=== PATIENT | female | born 2000 | race Hispanic/Latino ===

== ENCOUNTER 2019-12-05 10:32 | Inpatient (IN) | payer OTHER, SELFPAY ==
[2019-12-05] MEDS ORDERED: Misoprostol 200 MCG TAB PR PRN (11:25)
[2019-12-05] MEDS ORDERED: Methylergonovine 0.2 MG/ML VIAL IM PRN (11:25)
[2019-12-05] MEDS ORDERED: Ondansetron PF 4 MG/2 ML Vial IVP PRN ×2 (11:25→17:56)
[2019-12-05] MEDS ORDERED: Lidocaine 1% (PF) 30 ML VIAL SC PRN (11:25)
[2019-12-05] MEDS ORDERED: Acetaminophen 500 MG TAB PO PRN (11:25)
[2019-12-05] MEDS ORDERED: Ibuprofen 800 MG TAB PO PRN (11:25)
[2019-12-05] MEDS ORDERED: Lactated Ringer's 1,000 ML IV SCH (11:25)
[2019-12-05] MEDS ORDERED: Butorphanol Tartrate 1 MG/ML VIAL SLOW IVP PRN (11:25)
[2019-12-05] MEDS ORDERED: Diphenoxylate HCl/Atropine Tablet PO PRN (11:25)
[2019-12-05] MEDS ORDERED: HYDROcodone/Acetaminophen 5/325 mg Tablet PO PRN ×3 (11:25→17:56)
[2019-12-05] MEDS ORDERED: hydrALAZINE 20 MG/ML VIAL SLOW IVP PRN ×2 (11:25→17:56)
[2019-12-05] MEDS ORDERED: Promethazine HCl 25 MG/ML VIAL IM PRN (11:25)
[2019-12-05] MEDS ORDERED: Carboprost 250 MCG/ML AMP IM PRN (11:25)
[2019-12-05 11:31] VITALS: BMI 36.1
[2019-12-05 11:50] LABS: Mean Corpuscular HGB CONC 32.3 g/dL (32.0-36.0); Mean Corpuscular Hemoglobin 24.3 pg (25.0-35.0); Mean Corpuscular Volume 75.2 fL (78.0-98.0); Mean Platelet Volume 10.4 fL (7.4-10.4); Platelet Count 126 thou/uL (130-400); RBC Distribution Width 18.1 % (11.5-14.5); Red Blood Cell (RBC) Count 3.72 mill/uL (4.00-5.20); White Blood Cell (WBC) Count 7.2 thou/uL (4.8-10.8)
[2019-12-05 12:32] LABS: Syphilis Antibody Nonreactive (Nonreactive); Syphilis Antibody Index 0.03 S/CO (<1.00 Non-Reactive)
[2019-12-05 12:33] LABS: HBSAg Index 0.24 S/CO (0-0.99); Hep B Surf Ag Non-Reactive S/CO (NonReactive)
[2019-12-05] MEDS ORDERED: NS w/ Oxytocin 10 units 500 ML ONE (13:56)
[2019-12-05] MEDS ORDERED: Fentanyl 4 mcg/Bup 0.1% Cadd 100 ML ONE (14:45)
[2019-12-05] MEDS: NS / Oxytocin 40 units/1000ml 1,000 ML IV PRN ×2 (15:42→16:46)
[2019-12-05] MEDS ORDERED: Bisacodyl 10 MG SUPP PR PRN (17:56)
[2019-12-05] MEDS ORDERED: NS / Oxytocin 40 units/1000ml 1,000 ML IV SCH (17:56)
[2019-12-05] MEDS ORDERED: Milk Of Magnesia 30 ML UDCUP PO PRN (17:56)
[2019-12-05] MEDS ORDERED: Preparation H Ointment 28 GM TUBE PR PRN (17:56)
[2019-12-05] MEDS ORDERED: diphenhydrAMINE 25 MG CAP PO PRN (17:56)
[2019-12-05] MEDS ORDERED: Lanolin Ointment 7 GM TUBE TOP PRN (17:56)
[2019-12-05] MEDS ORDERED: Benzocaine-Menthol 82.5 ML CAN TOP PRN (17:56)
[2019-12-05] MEDS ORDERED: Ferrous Sulfate 325 MG TAB PO SCH (18:30)
[2019-12-05] MEDS: Docusate Calcium (SURFAK) 240 MG CAP PO SCH (21:23)
[2019-12-05] MEDS: Ibuprofen 800 MG TAB PO SCH (21:23)
[2019-12-06] MEDS: Ibuprofen 800 MG TAB PO SCH ×2 (05:10→13:43)
[2019-12-06] MEDS ORDERED: Ferrous Sulfate 325 MG TAB PO SCH (08:00)
[2019-12-06] MEDS ORDERED: Adacel (T-DAP) 0.5 ML SYRINGE IM ONE (09:00)
[2019-12-06] MEDS ORDERED: Prenatal Vitamin 1 TAB PO SCH (09:00)
[2019-12-06] MEDS: Docusate Calcium (SURFAK) 240 MG CAP PO SCH (09:53)
[2019-12-06 17:30] VITALS: BP 122/71; TEMP 98.6
== END 2019-12-06 19:15 | disposition home or self-care (01) | DRG 807 ==
LOC: L&D/OP 10:32 → L&D-LIB 10:33 → 3SW 18:46
PROVIDERS: ADMIT Family Medicine; ATTEND Family Medicine
PROC: 10E0XZZ Delivery of Products of Conception, External Approach (ICD-10-PCS; principal; 2019-12-05)
DX: O80 Encounter for full-term uncomplicated delivery (principal); Z37.0 Single live birth; Z3A.39 39 weeks gestation of pregnancy
CPT/HCPCS: 36415; 85027; 86780; 86850; 86900; 86901; 87340; 90715; 99285; J2405; J2590

== ENCOUNTER 2020-04-05 23:26 | Emergency (ER) | payer SELFPAY | END 2020-04-06 01:17 | disposition home or self-care (01) | LOC: ERS 23:26 | DX: O03.9 Complete or unspecified spontaneous abortion without complication (principal); Z3A.01 Less than 8 weeks gestation of pregnancy | CPT/HCPCS: 36415; 84702; 99284 ==